=== PATIENT | male | born 1955 | race Caucasian/White ===

== ENCOUNTER 2016-12-31 12:19 | Emergency (ER) | payer OTHER ==
[2016-12-31 12:27] VITALS: BP 127/74
--- NOTE | 2016-12-31 14:19 | PROVIDER DOCUMENTATION ---
HPI-Musculoskeletal Pain/Inj - GENERAL Source: patient - HX OF PRESENT ILLNESS-MUSKULOSKELTAL Quality of Pain: reports: aching Severity in ED: moderate Onset/Duration: this morning Timing: still present Any recent injury?: No Locality of Occurance: Home Similar Symptoms Previously?: No Recently seen or treated by another doctor?: No <Steve Hall - Last Filed: 12/31/16 16:06> <Brandy Villarreal - Last Filed: 12/31/16 16:11> - GENERAL Chief Complaint: Extremity Pain Stated Complaint: left knee pain Time Seen by Provider: 12/31/16 13:25 - HX OF PRESENT ILLNESS-MUSKULOSKELTAL Nature of Presenting Problem: 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 Handbag Stitcher reports pt has mild MR and is unable to answer questions but he hasn't been able to bear weight on LLE. Handbag Stitcher denies any other symptoms or injury. ( Steve Hall) Review of Systems - Adult - REVIEW OF SYSTEMS - ADULT Constitutional: denies: chills, fever, fatique Eyes: reports: no symptoms reported Ears, Nose, Mouth & Throat: reports: no symptoms reported Cardiovascular: denies: chest pain, irregular heart rate, orthopnea Respiratory: reports: no symptoms reported Gastrointestinal: reports: no symptoms reported Genitourinary: reports: no symptoms reported Musculoskeletal: reports: see HPI. denies: joint pain, joint swelling, neck pain Integumentary: reports: no symptoms reported Neurological: reports: no symptoms reported Psychiatric: reports: no symptoms reported Endocrine: reports: no symptoms reported Hematologic/Lymphatic: reports: no symptoms reported Allergic/Immunologic: reports: no symptoms reported All Other Systems: Reviewed and Negative <Steve Hall - Last Filed: 12/31/16 16:06> Past History - Adult - PAST MEDICAL HISTORY-ADULT Review of Records: reports: Nursing Assessment Review, Medications Reviewed Major Childhood Illnesses: reports: denies history Cardiovascular: reports: denies history Respiratory: reports: denies history Gastrointestinal: reports: denies history Obstetrical/Gynecological: reports: denies history Genitourinary: reports: denies history Musculoskeletal: reports: denies history Neurological: reports: denies history Endocrine/Immune: reports: denies history Other Conditions: reports: other (MR) - IMMUNIZATION STATUS Childhood Immunizations: See Nurse Assessment Flu Vaccine: See Nurse Assessment - FAMILY HISTORY Family History: reviewed, not pertinent <Denys Halldanielle - Last Filed: 12/31/16 16:06> Physical Exam-Injury Related - Physical Exam-Injury Related Initial Vital Signs Reviewed: Yes General Appearance: appears well, alert, no apparent distress Immobilization?: negative: backboard, C-collar Eyes: PERRL/EOMI, pink conjunctivae Head, Ears, Nose, Mouth & Throat: moist mucous membranes, normal ENT inspection , TMs normal, pharynx normal Neck: non-tender, full range of motion, supple, normal inspection Respiratory: chest non-tender, lungs clear, normal breath sounds, no pleuratic chest pain, no respiratory distress, no accessory muscle use Cardiovascular: regular rate, rhythm Peripheral Pulses: dorsalis-pedis (R): 2+, dorsalis-pedis (L): 2+ Abdominal Exam: normal bowel sounds, non tender, soft, no organomegaly, no pulsatile mass Extremity: no pedal edema, normal capillary refill, calf tenderness (mild), swelling (mild swelling), tenderness (ttp left knee). negative: deformity, erythema, inflammation, joint effusion Integumentary: normal color, warm/dry Psych/Mental Status: normal mood/affect, normal thought content, normal thought process - Glascow Coma Score Best Eye Response ([place]): (4) open spontaneously Best Verbal Response ([place]): (5) oriented Best Motor Response ([place]): (6) obeys commands [place] Total: 15 <Steve Hall - Last Filed: 12/31/16 16:06> Progress - EKG 1 Time of EKG reading by physician:: 15:28 EKG Read and Signed by:: Alla Nicholson EKG Interpretation (*Must complete 3 of following elements*): Abnormal Rate: 81 Rhythm: nsr [place]: normal QRS: RBB [place] Interval: normal <RafaelDenysdanielle - Last Filed: 12/31/16 16:06> - XRAY 1 XRAY: Left XRAY Study: Knee Impression: See EMR Report (No definite acute pathology, per Dr. Weinstein) <Brandy Villarreal - Last Filed: 12/31/16 16:11> - PLAN OF CARE/RESULTS Progress/Plan/Lab Results: Orders Category Date Time Status KNEE 3 VIEWS LEFT [RAD] Stat Exams 12/31/16 13:54 Taken CBC WITH ELECTRONIC DIFF [HEME] Stat Lab 12/31/16 13:54 Uncollected COMPREHENSIVE METABOLIC PANEL [CHEM] Stat Lab 12/31/16 13:54 Uncollected D-DIMER [CHEM] Stat Lab 12/31/16 13:54 Uncollected MAGNESIUM [CHEM] Stat Lab 12/31/16 13:54 Uncollected PROTIME WITH INR [COAG] Stat Lab 12/31/16 13:54 Uncollected PTT [COAG] Stat Lab 12/31/16 13:54 Uncollected EKG [EKG] Stat Ther 12/31/16 13:54 Ordered Vital Signs - 24 hr 12/31/16 12:24 Temperature 98.2 F Pulse Rate 79 Respiratory 18 Rate Blood Pressure 127/74 O2 Sat by Pulse 100 Oximetry Laboratory Tests 12/31/16 12/31/16 12/31/16 15:00 15:00 15:00 WBC 8.44 RBC 4.58 L Hgb 13.8 L Hct 40.6 L MCV 88.6 MCH 30.1 MCHC 34.0 RDW Std Deviation 12.9 Plt Count 228 MPV 9.6 Immature Gran % (Auto) 0.0 Neut % (Auto) 80.1 H Lymph % (Auto) 10.5 L [place] % (Auto) 8.3 Eos % (Auto) 0.6 Baso % (Auto) 0.5 Immature Gran # (Auto) 0.00 Neut # (Auto) 6.76 H Lymph # (Auto) 0.89 L [place] # (Auto) 0.70 H Eos # (Auto) 0.05 Baso # (Auto) 0.04 PT INR PTT (Actin FS) D-Dimer 0.55 H Sodium 136 Potassium 3.5 Chloride 97 L Carbon Dioxide 27 Anion Gap 12 BUN 14 Creatinine 1.0 Estimated GFR/1.73 m2 > 60 BUN/Creatinine Ratio 14 Glucose 122 H Calculated Osmolality 274 Calcium 9.3 Magnesium 1.9 Total Bilirubin 0.30 AST 23 ALT 20 Alkaline Phosphatase 118 Total Protein 6.7 Albumin 3.7 Globulin 3.0 Albumin/Globulin Ratio 1.2 12/31/16 15:00 WBC RBC Hgb Hct MCV MCH MCHC RDW Std Deviation Plt Count MPV Immature Gran % (Auto) Neut % (Auto) Lymph % (Auto) [place] % (Auto) Eos % (Auto) Baso % (Auto) Immature Gran # (Auto) Neut # (Auto) Lymph # (Auto) [place] # (Auto) Eos # (Auto) Baso # (Auto) PT 10.4 INR 0.98 PTT (Actin FS) 26.8 D-Dimer Sodium Potassium Chloride Carbon Dioxide Anion Gap BUN Creatinine Estimated GFR/1.73 m2 BUN/Creatinine Ratio Glucose Calculated Osmolality Calcium Magnesium Total Bilirubin AST ALT Alkaline Phosphatase Total Protein Albumin Globulin Albumin/Globulin Ratio ([facility]) Laboratory Tests 12/31/16 12/31/16 12/31/16 15:00 15:00 15:00 WBC 8.44 RBC 4.58 L Hgb 13.8 L Hct 40.6 L MCV 88.6 MCH 30.1 MCHC 34.0 RDW Std Deviation 12.9 Plt Count 228 MPV 9.6 Immature Gran % (Auto) 0.0 Neut % (Auto) 80.1 H Lymph % (Auto) 10.5 L [place] % (Auto) 8.3 Eos % (Auto) 0.6 Baso % (Auto) 0.5 Immature Gran # (Auto) 0.00 Neut # (Auto) 6.76 H Lymph # (Auto) 0.89 L [place] # (Auto) 0.70 H Eos # (Auto) 0.05 Baso # (Auto) 0.04 PT INR PTT (Actin FS) D-Dimer 0.55 H Sodium 136 Potassium 3.5 Chloride 97 L Carbon Dioxide 27 Anion Gap 12 BUN 14 Creatinine 1.0 Estimated GFR/1.73 m2 > 60 BUN/Creatinine Ratio 14 Glucose 122 H Calculated Osmolality 274 Calcium 9.3 Magnesium 1.9 Total Bilirubin 0.30 AST 23 ALT 20 Alkaline Phosphatase 118 Total Protein 6.7 Albumin 3.7 Globulin 3.0 Albumin/Globulin Ratio 1.2 12/31/16 15:00 WBC RBC Hgb Hct MCV MCH MCHC RDW Std Deviation Plt Count MPV Immature Gran % (Auto) Neut % (Auto) Lymph % (Auto) [place] % (Auto) Eos % (Auto) Baso % (Auto) Immature Gran # (Auto) Neut # (Auto) Lymph # (Auto) [place] # (Auto) Eos # (Auto) Baso # (Auto) PT 10.4 INR 0.98 PTT (Actin FS) 26.8 D-Dimer Sodium Potassium Chloride Carbon Dioxide Anion Gap BUN Creatinine Estimated GFR/1.73 m2 BUN/Creatinine Ratio Glucose Calculated Osmolality Calcium Magnesium Total Bilirubin AST ALT Alkaline Phosphatase Total Protein Albumin Globulin Albumin/Globulin Ratio Orders Category Date Time Status KNEE 3 VIEWS LEFT [RAD] Stat Exams 12/31/16 13:54 Completed CBC WITH ELECTRONIC DIFF [HEME] Stat Lab 12/31/16 15:00 Completed COMPREHENSIVE METABOLIC PANEL [CHEM] Stat Lab 12/31/16 15:00 Completed D-DIMER [CHEM] Stat Lab 12/31/16 15:00 Completed MAGNESIUM [CHEM] Stat Lab 12/31/16 15:00 Completed PROTIME WITH INR [COAG] Stat Lab 12/31/16 15:00 Completed PTT [COAG] Stat Lab 12/31/16 15:00 Completed EKG [EKG] Stat Ther 12/31/16 13:54 Draft Vital Signs Temp Pulse Resp BP Pulse Ox 12/31/16 12:24 98.2 F 79 18 127/74 100 No Known Allergies Allergy (Verified 12/31/16 13:18) Aripiprazole [Abilify] 1.5 tab PO QHS 12/31/16 Buspirone [Buspar] 10 mg PO BID 12/31/16 Cholecalciferol (Vitamin D3) [Vitamin D3] 1,000 unit PO DAILY 12/31/16 Donepezil [Aricept] 10 mg PO DAILY 12/31/16 Famotidine 40 mg PO QHS 12/31/16 Loratadine [Claritin] 10 mg PO DAILY 12/31/16 Mirtazapine [Remeron] 15 mg PO QHS 12/31/16 Paroxetine HCl [Paxil] 40 mg PO DAILY 12/31/16 SIMVAstatin [Zocor] 40 mg PO QHS 12/31/16 Zolpidem [Ambien] 5 mg PO QHS 12/31/16 Laboratory 12/31/16 12/31/16 12/31/16 15:00 15:00 15:00 WBC RBC Hgb Hct MCV MCH MCHC RDW Std Deviation Plt Count MPV Immature Gran % (Auto) Neut % (Auto) Lymph % (Auto) [place] % (Auto) Eos % (Auto) Baso % (Auto) Immature Gran # (Auto) Neut # (Auto) Lymph # (Auto) [place] # (Auto) Eos # (Auto) Baso # (Auto) PT 10.4 INR 0.98 PTT (Actin FS) 26.8 D-Dimer 0.55 H Sodium 136 Potassium 3.5 Chloride 97 L Carbon Dioxide 27 Anion Gap 12 BUN 14 Creatinine 1.0 Estimated GFR/1.73 m2 > 60 BUN/Creatinine Ratio 14 Glucose 122 H Calculated Osmolality 274 Calcium 9.3 Magnesium 1.9 Total Bilirubin 0.30 AST 23 ALT 20 Alkaline Phosphatase 118 Total Protein 6.7 Albumin 3.7 Globulin 3.0 Albumin/Globulin Ratio 1.2 12/31/16 15:00 WBC 8.44 RBC 4.58 L Hgb 13.8 L Hct 40.6 L MCV 88.6 MCH 30.1 MCHC 34.0 RDW Std Deviation 12.9 Plt Count 228 MPV 9.6 Immature Gran % (Auto) 0.0 Neut % (Auto) 80.1 H Lymph % (Auto) 10.5 L [place] % (Auto) 8.3 Eos % (Auto) 0.6 Baso % (Auto) 0.5 Immature Gran # (Auto) 0.00 Neut # (Auto) 6.76 H Lymph # (Auto) 0.89 L [place] # (Auto) 0.70 H Eos # (Auto) 0.05 Baso # (Auto) 0.04 PT INR PTT (Actin FS) D-Dimer Sodium Potassium Chloride Carbon Dioxide Anion Gap BUN Creatinine Estimated GFR/1.73 m2 BUN/Creatinine Ratio Glucose Calculated Osmolality Calcium Magnesium Total Bilirubin AST ALT Alkaline Phosphatase Total Protein Albumin Globulin Albumin/Globulin Ratio Discussed tx and f/u with pt. Discussed pt with Dr. Drew; he states to disregard mild elevation in Ddimer and send pt home. (Brandy Villarreal) Departure <Steve Hall - Last Filed: 12/31/16 16:06> - Departure Time of Disposition Order: 16:10 Certified Medical Emergency: Emergent <Brandy Villarreal - Last Filed: 12/31/16 16:11> - Departure DIAGNOSIS: Knee sprain Qualifiers: Encounter type: initial encounter Involved ligament of knee: unspecified ligament Laterality: left Qualified Code(s): S83.92XA - Sprain of unspecified site of left knee, initial encounter Disposition: HOME 01 Condition: Stable Additional Instructions: Follow up with Dr. Tapscott for further management. RICE or heat as needed. Take medications as directed. ED Follow Up Instructions: You have been treated by a care provider in the Emergency Department. These instructions are being provided to you so you can have an understanding of how to care for yourself upon discharge. Upon discharge from the Emergency Department, you are responsible for making arrangements for follow-up care by a physician of your choice. Take all prescribed medications as directed. Return to the Emergency Department immediately for any new or worsening symptoms. You may call the Physician Referral phone number at [phone] to obtain a list of Physicians who are taking new patients. Prescriptions: Meloxicam [Mobic] 15 mg PO DAILY #30 tablet Attestation - Scribe Verification/Attestation Scribe:: Steve Hall Acting as Scribe for:: Brandy Villarreal Scribe documention review:: This chart was documented by a scribe and accurately reflects the service the provider performed and the decisions made by the provider. <Steve Hall - Last Filed: 12/31/16 16:06> Physician Attestation
--- NOTE | 2016-12-31 14:24 | Diag Imaging Result Document ---
PROCEDURE NAME: KNEE 3 VIEWS LEFT - 12/31/2016 PLAIN RADIOGRAPH OF THE LEFT KNEE, 4 VIEWS: COMPARISON: None available. FINDINGS: There appears to be a tiny cortical bone island associated with the proximal tibia. There is no discrete fracture, dislocation, or intrinsic osseous lesion, otherwise. The joint spaces appear to be preserved. Surrounding soft tissues are grossly unremarkable. IMPRESSION: No definite acute pathology.
[2016-12-31 15:10] LABS: MANUAL DIFF NEEDED? NO
[2016-12-31 15:16] LABS: BASO% 0.5 % (0.0-0.8); EOS# 0.05 X1000 (0.0-0.7); EOS% 0.6 % (0.0-10.0); HEMATOCRIT 40.6 % (42.0-52.0); HEMOGLOBIN 13.8 g/dL (14.0-18.0); LYMPH# 0.89 X1000 (1.2-3.4); LYMPH% 10.5 % (20.5-51.1); MCH 30.1 PG (27-31); MCV 88.6 FL (81-99); MONO% 8.3 % (1.7-9.3); MPV 9.6 FL (7.4-10.4); NEUT% 80.1 % (42.2-75.2); PLT 228 X1000 (130-400); RBC 4.58 XMIL (4.7-6.1)
[2016-12-31 15:29] LABS: INR 0.98; PROTIME 10.4 Seconds (9.2-11.7); PTT 26.8 Seconds (22.0-36.0)
[2016-12-31 15:38] LABS: AGAP 12; ALBUMIN 3.7 g/dL (3.5-5.0); ALKALINE PHOSPHATASE 118 U/L (32-122); BUN 14 mg/dL (8-22); CALCIUM 9.3 mg/dL (8.8-10.2); CHLORIDE 97 mmol/L (98-107); COSMO 274; GOT 23 U/L (10-34); GPT 20 U/L (10-44); MAGNESIUM 1.9 mg/dL (1.5-2.7); POTASSIUM 3.5 mmol/L (3.5-5.1); SODIUM 136 mmol/L (136-145); TCO2 27 mmol/L (25-35); TOTAL PROTEIN 6.7 g/dL (6.3-8.3)
--- NOTE | 2016-12-31 15:39 | EKG Report ---
Test Performed on : 12/31/2016 3:28:32 PM Test Reason : Chest Pain Blood Pressure : / mmHG Vent. Rate : 081 BPM Atrial Rate : 081 BPM P-R Int : 136 ms QRS Dur : 128 ms QT Int : 416 ms P-R-T Axes : 053 046 031 degrees QTc Int : 483 ms Normal sinus rhythm. Right bundle branch block Abnormal ECG No previous ECGs available Unconfirmed Result
== END 2016-12-31 16:42 | disposition home or self-care (01) ==
LOC: ED 12:19
DX: S83.92XA Sprain of unspecified site of left knee, initial encounter (principal); M79.662 Pain in left lower leg; R22.42 Localized swelling, mass and lump, left lower limb; R94.31 Abnormal electrocardiogram [ECG] [EKG]; F79 Unspecified intellectual disabilities; Z79.899 Other long term (current) drug therapy
CPT/HCPCS: 80053; 83735; 85025; 85379; 85610; 85730; 93005